=== PATIENT | female | born 1945 | race African-American/Black ===

== ENCOUNTER 2020-09-05 19:41 | Inpatient (IN) | payer MEDICARE, MEDICAID ==
[~2020-09-05] VITALS: Ht 152.4 cm; Wt 45.1 kg
[2020-09-05] MEDS ORDERED: LIPITOR10 MG PO (20:07)
[2020-09-05] MEDS ORDERED: BASAGLAR K100 UNIT/1 (20:07)
[2020-09-05] MEDS ORDERED: COZAAR100 MG PO (20:08)
[2020-09-05] MEDS ORDERED: HYDROCODONE-AC1 EAC2 PO (20:08)
[2020-09-05] MEDS ORDERED: MEGACE40 MG PO (20:10)
[2020-09-05] MEDS ORDERED: PROTONIX40 MG PO (20:10)
[2020-09-05] MEDS ORDERED: RENVELA800 MG PO (20:11)
[2020-09-05 21:05] VITALS: BP 159/91
[2020-09-05 21:30] LABS: BASOPHILS 0.1 % (0-2); EOSINOPHILS 0 % (0-7); HEMATOCRIT 38.6 % (36.0-48.0); HEMOGLOBIN 11.7 g/dL (12-16); LYMPHOCYTES 2.9 % (15-50); MCH 26.7 pg (26.0-34.0); MCHC 30.3 g/dL (31.0-37.0); MCV 88.1 fL (80.0-100.0); MEAN PLATELET VOLUME 9.3 fL (7.4-10.4); MONOCYTES 3.6 % (2-11); NEUTROPHILS 93.4 % (40-80); PLATELET COUNT 320 10x3/uL (130-400); RBC 4.38 10x6/uL (4.00-5.40); RDW 21.2 % (11.5-14.5); WBC 16.6 10x3/uL (4.8-10.8)
[2020-09-05 21:47] LABS: APTT 41.5 SECONDS (22.8-39.4); INR 1.29 (0.85-1.17); PROTIME 14.9 SECONDS (11.6-15.0)
[2020-09-05 21:50] VITALS: BP 170/91
[2020-09-05 22:02] LABS: ALBUMIN 3.3 g/dL (3.4-5.0); BILIRUBIN - TOTAL 0.97 mg/dL (0.2-1.3); CALCIUM 8.8 mg/dL (8.5-10.1); CARBON DIOXIDE 21.2 mmol/L (21.0-32.0); CREATININE - SERUM 9.8 mg/dL (0.6-1.3); MAGNESIUM - SERUM 2.1 mg/dL (1.8-2.4); PHOSPHOROUS 7.5 mg/dL (2.5-4.9)
[2020-09-05 22:04] LABS: ANION GAP 21.9 mmol/L (8-16)
[2020-09-05 22:07] LABS: POTASSIUM - SERUM 6.1 mmol/L (3.5-5.1)
[2020-09-05 23:21] VITALS: BP 135/67
--- NOTE | 2020-09-05 23:55 | NUR ---
RECEIVED PT FROM THE ER TO ROOM 2305. TRANSFERRED PT TO ICU BED AND ATTACHED PT TO MONITORS. PT COMPLAINS OF PAIN TO HER RLQ ABDOMEN, INFORMED PT THAT SOON I CAN GIVE HER PAIN MEDS THAT I WOULD GET THEM FOR HER. ADMISSION ASSESSMENT AND HX COMPLETED WITH PT ASSISTANCE. NO FURTHER NEEDS VOICED AT THIS TIME. NO S/S OF DISTRESS NOTED. WILL CONTINUE TO MONITOR.
[2020-09-06] VITALS (23 sets, daily range): BP systolic 117–177; BP diastolic 43–75; Ht 152.4 cm; Wt 45.1 kg
--- NOTE | 2020-09-06 00:10 | NUR ---
SPOKE WITH ELISA LLOYD APN AND WAS NOTIFIED THAT HE PERSONALLY SPOKE WITH BOTH DR DRAPER AND DR ELIZONDO REGARDING PATIENT CONSULTS.
[2020-09-06 02:10] LABS: CKMB 0.5 U/L (0.0-3.6); CREATINE KINASE 42 UL (21-215)
[2020-09-06 02:12] LABS: TROPONIN-I 0.074 ng/mL (0.000-0.060)
[2020-09-06 07:39] LABS: BASOPHILS 0.7 % (0-2); EOSINOPHILS 0.1 % (0-7); LYMPHOCYTES 1.8 % (15-50); MCH 26.3 pg (26.0-34.0); MCHC 30.3 g/dL (31.0-37.0); MCV 86.8 fL (80.0-100.0); MEAN PLATELET VOLUME 8.7 fL (7.4-10.4); MONOCYTES 4.3 % (2-11); NEUTROPHILS 93.1 % (40-80); PLATELET COUNT 262 10x3/uL (130-400); RDW 21.1 % (11.5-14.5); WBC 18.9 10x3/uL (4.8-10.8)
[2020-09-06 07:46] LABS: HEMATOCRIT 28.8 % (36.0-48.0); HEMOGLOBIN 8.8 g/dL (12-16); RBC 3.32 10x6/uL (4.00-5.40)
[2020-09-06 08:21] LABS: ALBUMIN 2.7 g/dL (3.4-5.0); ALKALINE PHOSPHATASE 31 U/L (30-120); ALT (SGPT) 22 U/L (10-68); AMYLASE - SERUM 51 U/L (25-115); BILIRUBIN - TOTAL 0.78 mg/dL (0.2-1.3); CALC OSMOLALITY 317 mosm/kg (275-300); CALCIUM 8.3 mg/dL (8.5-10.1); CARBON DIOXIDE 18.7 mmol/L (21.0-32.0); CHLORIDE - SERUM 107 mmol/L (98-107); CHOL - HDL RATIO 2.4 ratio (2.3-4.1); CHOLESTEROL, TOTAL 131 mg/dL (0-200); CKMB 0.7 U/L (0.0-3.6); CREATINE KINASE 37 UL (21-215); CREATININE - SERUM 10.3 mg/dL (0.6-1.3); GLUCOSE 221 mg/dL (74-106); HDL CHOLESTEROL 54 mg/dL (32-96); LDL CHOLESTEROL 67 mg/dL (0-100); LDL-HDL RATIO 1.2 ratio (1.5-3.5); LIPASE 19 U/L (73-393); PHOSPHOROUS 8.3 mg/dL (2.5-4.9); POTASSIUM - SERUM 5.1 mmol/L (3.5-5.1); PROTEIN - SERUM 6.6 g/dL (6.4-8.2); SODIUM 143 mmol/L (136-145); TRIGLYCERIDE 54 mg/dL (30-200); UREA NITROGEN 85 mg/dL (7-18); VANCOMYCIN - RANDOM 19.1 ug/mL (10.0-20.0); eGFR NON AFRICAN AMERICAN 4 mL/min (90-120)
[2020-09-06 08:22] LABS: TROPONIN-I 0.082 ng/mL (0.000-0.060)
--- NOTE | 2020-09-06 11:41 | NUR ---
PATIENT ARRIVED TO OR WITH DENTURE X 1 PLATE. REMOVED AND PLACED IN LABELED DENTURE CUP. TAKEN WITH PATIENT TO ICU BED 2305. NOTED. YESSENIA GARNETT
--- NOTE | 2020-09-06 12:10 | NUR ---
LEVOPHED INFUSIN THROUGH L ARM. PT ON VENT 100% ON FIO2.
--- NOTE | 2020-09-06 12:27 | NUR ---
PT ON VENT. VSS. FIXED SPO2 STICKER FOR BETTER READING. PT SEDATED.
[2020-09-06 13:22] LABS: CKMB 0.5 U/L (0.0-3.6); CREATINE KINASE 49 UL (21-215); TROPONIN-I 0.057 ng/mL (0.000-0.060)
--- NOTE | 2020-09-06 19:00 | NUR ---
BEDSIDE REPORT COMPLETED WITH OFF GOING NURSE. PT IS LAYING IN BED SEDATED AND ON THE VENT. PT WILL AWAKEN AND NOD OR SHAKE HEAD TO QUESTIONS. BROTHER PRESENT AT THE BEDSIDE AT THIS TIME. NO NEEDS NOTED. NO S/S OF DISTRESS NOTED. SHIFT ASSESSMENT COMPLETED, SEE FLOWSHEET FOR DETAILS. WILL CONTINUE TO MONITOR.
[2020-09-07] VITALS (24 sets, daily range): BP systolic 111–158; BP diastolic 26–66
[2020-09-07 05:12] LABS: BASOPHILS 0.3 % (0-2); EOSINOPHILS 0 % (0-7); HEMOGLOBIN 10.1 g/dL (12-16); LYMPHOCYTES 1.9 % (15-50); MCH 27.2 pg (26.0-34.0); MCHC 31.5 g/dL (31.0-37.0); MCV 86.2 fL (80.0-100.0); MEAN PLATELET VOLUME 9.3 fL (7.4-10.4); MONOCYTES 5.9 % (2-11); NEUTROPHILS 91.9 % (40-80); PLATELET COUNT 211 10x3/uL (130-400); RBC 3.72 10x6/uL (4.00-5.40); RDW 19.2 % (11.5-14.5); WBC 16.6 10x3/uL (4.8-10.8)
[2020-09-07 06:22] LABS: ALBUMIN 2.3 g/dL (3.4-5.0); ANION GAP 17.5 mmol/L (8-16); BILIRUBIN - TOTAL 1.68 mg/dL (0.2-1.3); CALCIUM 8.4 mg/dL (8.5-10.1); CARBON DIOXIDE 21.9 mmol/L (21.0-32.0); MAGNESIUM - SERUM 1.9 mg/dL (1.8-2.4); PHOSPHOROUS 6.8 mg/dL (2.5-4.9); POTASSIUM - SERUM 4.4 mmol/L (3.5-5.1); PROTEIN - SERUM 6.2 g/dL (6.4-8.2); TROPONIN-I 0.047 ng/mL (0.000-0.060)
[2020-09-07 06:23] LABS: CREATININE - SERUM 6.8 mg/dL (0.6-1.3)
[2020-09-07 09:14] LABS: HEPATITIS C ANTIBODY 0.1 S/CO RAT (0.0-0.9)
--- NOTE | 2020-09-07 10:36 | NUR ---
PT ABLE TO OPEN EYES AND FOLLOW SIMPLE COMMANDS WHILE SEDATION OFF. SWITCHED TO CPAP TRIAL PER RESPIRATORY.
--- NOTE | 2020-09-07 11:15 | NUR ---
P/S TRIAL STARTED PER DR. MERAZ AT 1036. 01/17 30%. PT IS DOING WELL AT THIS TIME. RSBI 62, HR 88 SPO2 100%. ABG TO FOLLOW IN 1 HOUR. POSSIBLE EXTUBATION TODAY UPON SUCCESSFUL TRIAL.
--- NOTE | 2020-09-07 13:02 | NUR ---
AT 1256 PT WAS EXTUBATED TO ROOM AIR PER DR MERAZ. ABG RESULTS AND SUCESSFUL PRESSURE SUPPORT TRIAL FOR 2 HOURS WITH RSBI OF 62. PT IS DOING WELL AT THIS TIME.
--- NOTE | 2020-09-07 20:11 | NUR ---
BEDSIDE REPORT COMPLETED WITH OFF GOING NURSE. PT IS RESTING IN BED WITH EYES OPEN AT THIS TIME. NO S/S OF DISTRESS. NO NEEDS VOICED/EXPRESSED. SHIFT ASSESSMENT COMPLETED, SEE FLOWSHEET FOR DETAILS. WILL CONTINUE TO MONITOR.
[2020-09-08] VITALS (13 sets, daily range): BP systolic 102–153; BP diastolic 29–78
[2020-09-08 04:39] LABS: BASOPHILS 0.3 % (0-2); EOSINOPHILS 0.1 % (0-7); HEMATOCRIT 32.9 % (36.0-48.0); HEMOGLOBIN 10.3 g/dL (12-16); LYMPHOCYTES 3.4 % (15-50); MCH 27.1 pg (26.0-34.0); MCHC 31.4 g/dL (31.0-37.0); MCV 86.4 fL (80.0-100.0); MEAN PLATELET VOLUME 9.3 fL (7.4-10.4); NEUTROPHILS 89.2 % (40-80); PLATELET COUNT 245 10x3/uL (130-400); RBC 3.81 10x6/uL (4.00-5.40); RDW 19.4 % (11.5-14.5)
[2020-09-08 04:56] LABS: ALBUMIN 2.2 g/dL (3.4-5.0); ANION GAP 20.7 mmol/L (8-16); BILIRUBIN - TOTAL 1.34 mg/dL (0.2-1.3); CALCIUM 8.1 mg/dL (8.5-10.1); CARBON DIOXIDE 20.8 mmol/L (21.0-32.0); CREATININE - SERUM 8.5 mg/dL (0.6-1.3); PHOSPHOROUS 7.9 mg/dL (2.5-4.9); POTASSIUM - SERUM 4.5 mmol/L (3.5-5.1); PROTEIN - SERUM 6.3 g/dL (6.4-8.2); VANCOMYCIN - RANDOM 11.8 ug/mL (10.0-20.0)
--- NOTE | 2020-09-08 08:01 | NUR ---
Nutrition follow-up: Discussed during IDT team rounds. Pt extubated 09/07/20 Continues NPO at this time; NGT->LIS No BM charted since surgery Wt: 100# Recommendations: For short-term nutrition support, start ProcalAmine PPN @ 50 ml/hr RDN will follow-up pts progress 09/12/20
--- NOTE | 2020-09-08 09:53 | NUR ---
PT AWAKE AND ALERT IN BED. PT MOANING AND COMPLAINING OF EXTREME PAIN TO SX SITE. WILL GIVE PRN PAIN MED ORDERED.
--- NOTE | 2020-09-08 11:00 | NUR ---
A-LINE REMOVED. PRESSURE APPLIED FOR APPROX 5 MIN. BLEEDING CONTROLLED. DRESSING PLACED. DISTAL PULSES INTACT.
--- NOTE | 2020-09-08 12:00 | NUR ---
PT TAKEN TO DIALYSIS. STABLE AT TIME OF TRANSPORT.
--- NOTE | 2020-09-08 15:14 | NUR ---
DIALYSIS CALLED AND REPORTED COMPLETED AT 1500. 1L REMOVED. VS STABLE.
--- NOTE | 2020-09-08 15:32 | NUR ---
PT BACK FROM DIALYSIS. PT C/O PAIN TO ABD SX SITE 12/23. MORPHINE PRN GIVEN. PT STABLE AND REC' BED ON MED 2 FOR PT 2136.
--- NOTE | 2020-09-08 15:46 | NUR ---
REPORT GIVEN TO YESSENIA JOEL
--- NOTE | 2020-09-08 16:08 | NUR ---
PT ARRIVED VIA HOSPITAL BED. TRANSFERED TO BED IN ROOM 2136. PT AWAKE AND ALERT FAMILY AT BED SIDE. IV TO R AC NOTED WITH IV PROCAL AND SCHEDULED ANTIBIOTICS INFUSING. NGT TO R NARE PLACED TO LOW INTERMIT SUCTION PER ORDER. ABD DRESSING C/D/I. PT DENIES ANY NEEDS PAIN REPORTED WITH MOVEMENT, ICU NURSE ADMIN PAIN MEDS PRIOR TO TRANSFER. BELONGINGS WITHIN REACH CLWR.
--- NOTE | 2020-09-08 17:00 | NUR ---
Pt. tolerated dialysis treatment well. 1000mls UF Removed. VS 172/92-99. Report given to Major CASAS.
--- NOTE | 2020-09-08 19:30 | NUR ---
PT IN BED, AAO X 3, RESP EVEN AND UNLABORED, NO DISTRESS NOTED, IV INFILTRATED TO RIGHT AC, NEW 22G STARTED TO LEFT FOREARM, CL IN REACH, SR UP X 2.
[2020-09-09 00:54] VITALS: BP 155/76
--- NOTE | 2020-09-09 01:41 | NUR ---
I have reviewed this patient and I concur with the Shift Assessment completed by the Licensed Practical Nurse today this shift.
[2020-09-09 05:06] VITALS: BP 154/77
[2020-09-09 05:15] LABS: BASOPHILS 0.5 % (0-2); EOSINOPHILS 0.8 % (0-7); HEMOGLOBIN 10.5 g/dL (12-16); LYMPHOCYTES 3.2 % (15-50); MCH 27.4 pg (26.0-34.0); MCHC 31.7 g/dL (31.0-37.0); MCV 86.3 fL (80.0-100.0); MEAN PLATELET VOLUME 9.7 fL (7.4-10.4); NEUTROPHILS 88.5 % (40-80); PLATELET COUNT 258 10x3/uL (130-400); RBC 3.82 10x6/uL (4.00-5.40); WBC 11.8 10x3/uL (4.8-10.8)
[2020-09-09 06:37] LABS: ALBUMIN 2.2 g/dL (3.4-5.0); BILIRUBIN - TOTAL 1.53 mg/dL (0.2-1.3); CALCIUM 8.1 mg/dL (8.5-10.1); CARBON DIOXIDE 22.6 mmol/L (21.0-32.0); PHOSPHOROUS 5.9 mg/dL (2.5-4.9); POTASSIUM - SERUM 4.6 mmol/L (3.5-5.1); PROTEIN - SERUM 6.5 g/dL (6.4-8.2)
--- NOTE | 2020-09-09 08:30 | NUR ---
RECEIVE SHIFT REPORT. RESTING IN BED WITH EYES CLOSED. NG TUBE IN PLACE. NO S/S OF DISTRESS PRESENT AT THIS TIME. WILL CONTINUE POC AND SAFETY PRECAUTIONS. CALL LIGHT IN REACH.
[2020-09-09 08:55] VITALS: BP 155/85
[2020-09-09 12:00] VITALS: BP 147/85
--- NOTE | 2020-09-09 19:30 | NUR ---
PT IN BED, AAO X 3, RESP EVEN AND UNLABORED, NO DISTRESS NOTED, DRSG TO ABDOMEN CHANGED PER ORDER AT THIS TIME, PT TOLERATED WELL, CL IN REACH, SR UP X 2.
[2020-09-09 20:23] VITALS: BP 143/80
[2020-09-09 23:44] VITALS: BP 126/62
[2020-09-10 04:59] VITALS: BP 139/75
[2020-09-10 06:55] LABS: ANION GAP 18.4 mmol/L (8-16); BILIRUBIN - TOTAL 0.93 mg/dL (0.2-1.3); CALCIUM 8.3 mg/dL (8.5-10.1); CARBON DIOXIDE 22.9 mmol/L (21.0-32.0); CREATININE - SERUM 6.7 mg/dL (0.6-1.3); MAGNESIUM - SERUM 2.3 mg/dL (1.8-2.4); PHOSPHOROUS 6.5 mg/dL (2.5-4.9); POTASSIUM - SERUM 4.3 mmol/L (3.5-5.1); PROTEIN - SERUM 5.9 g/dL (6.4-8.2)
[2020-09-10 07:16] LABS: BASOPHILS 0.3 % (0-2); EOSINOPHILS 1.4 % (0-7); HEMATOCRIT 31.2 % (36.0-48.0); LYMPHOCYTES 8.1 % (15-50); MCH 27.7 pg (26.0-34.0); MCHC 31.9 g/dL (31.0-37.0); MCV 86.7 fL (80.0-100.0); MEAN PLATELET VOLUME 9.2 fL (7.4-10.4); MONOCYTES 8.1 % (2-11); NEUTROPHILS 82.1 % (40-80); PLATELET COUNT 264 10x3/uL (130-400); RDW 18.8 % (11.5-14.5)
[2020-09-10 07:34] LABS: WBC 7.9 10x3/uL (4.8-10.8)
--- NOTE | 2020-09-10 08:00 | NUR ---
PT RECEIVED ASLEEP IN BED, AROUSE TO VOICE. NGT TO SUCTION. ABDOMEN SORE, JULIAN DRAIN IN PLACE AND EMPTIED.
[2020-09-10 08:55] VITALS: BP 123/69; BP 141/73
[2020-09-10 09:11] LABS: IMMUNOGLOBULIN E 3 IU/mL (6-495)
--- NOTE | 2020-09-10 10:43 | NUR ---
PT UP TO BATHROOM WITH URGE TO HAVE BM. BED CHANGED AND NGT CLAMPED PER ORDER.
[2020-09-10 11:51] VITALS: BP 139/72
[2020-09-10 15:54] VITALS: BP 140/83
--- NOTE | 2020-09-10 17:30 | NUR ---
PT BACK TO ROOM FROM DIALYSIS DUE TO CHEST PAIN. EKG DONE SHOWING NORMAL RYTHM. FAMILY IN ROOM. PT STATES MAY BE FROM SURGERY AND SHE HAS HAD SOME GAS TODAY.
[2020-09-10 18:55] LABS: CKMB 0.6 U/L (0.0-3.6); CREATINE KINASE 73 UL (21-215); TROPONIN-I 0.059 ng/mL (0.000-0.060)
--- NOTE | 2020-09-10 18:56 | NUR ---
PT FAMILY TO NURSE STATION AND TRYING TO GIVE MONEY TO GET STARBUCKS OR SNACK. INSTRUCTED COULD NOT TAKE ROSAS. FAMILY LEFT AND MONEY PLACED IN PT'S PERSONAL BELONGINGS BAG IN ROOM.
[2020-09-10 20:05] VITALS: BP 118/64
[2020-09-11 00:51] VITALS: BP 135/72
--- NOTE | 2020-09-11 01:43 | NUR ---
PT IN BED, MOANING YELLING OUT FOR HUGO. BEGS THE LORD TO HELP HER W/ HER PAIN DILAUDID GIVEN PRN ORDERED. REPOSITIONED IN BED. WILL CONTINUE TO MONITOR
[2020-09-11 01:50] LABS: CKMB 0.8 U/L (0.0-3.6); CREATINE KINASE 67 UL (21-215); TROPONIN-I 0.051 ng/mL (0.000-0.060)
[2020-09-11 06:34] VITALS: BP 170/55
[2020-09-11 07:41] VITALS: BP 124/69
--- NOTE | 2020-09-11 07:45 | NUR ---
PT RECEIVED AWAKE AND ALERT. ASKING ABOUT HER PURSE WHEN SHE CAME IN. WILL TRY AND FIND OUT LOCATION TODAY. NO FORMS ON CHART FOR SECURITY LOCK UP. WILL ASK FAMILY IF THEY TOOK HOME. NOT IN ROOM.
[2020-09-11 08:03] LABS: ALBUMIN 2.2 g/dL (3.4-5.0); BILIRUBIN - TOTAL 0.82 mg/dL (0.2-1.3); CALCIUM 8.3 mg/dL (8.5-10.1); CARBON DIOXIDE 24.2 mmol/L (21.0-32.0); CREATININE - SERUM 7.2 mg/dL (0.6-1.3); PROTEIN - SERUM 5.9 g/dL (6.4-8.2)
[2020-09-11 08:04] LABS: ANION GAP 17.1 mmol/L (8-16); POTASSIUM - SERUM 5.3 mmol/L (3.5-5.1)
[2020-09-11 08:18] LABS: CREATINE KINASE 106 UL (21-215)
[2020-09-11 08:20] LABS: BASOPHILS 0.4 % (0-2); EOSINOPHILS 1.1 % (0-7); HEMATOCRIT 29.4 % (36.0-48.0); HEMOGLOBIN 9.3 g/dL (12-16); LYMPHOCYTES 6.1 % (15-50); MCH 27.9 pg (26.0-34.0); MCHC 31.8 g/dL (31.0-37.0); MCV 87.7 fL (80.0-100.0); MEAN PLATELET VOLUME 9.7 fL (7.4-10.4); MONOCYTES 6.2 % (2-11); NEUTROPHILS 86.2 % (40-80); PLATELET COUNT 295 10x3/uL (130-400); RBC 3.35 10x6/uL (4.00-5.40); RDW 18.8 % (11.5-14.5); WBC 9.3 10x3/uL (4.8-10.8)
[2020-09-11 08:21] LABS: TROPONIN-I 0.448 ng/mL (0.000-0.060)
[2020-09-11 12:28] VITALS: BP 134/67
[2020-09-11 16:11] VITALS: BP 122/59
[2020-09-11 19:59] VITALS: BP 143/81
--- NOTE | 2020-09-11 23:00 | NUR ---
new piv placed to left foraem, 20 gauge multiple attempts by 2 nurses. PT TOLERATED WELL, EXCELLENT BLOOD RETURN NOTED. WILL CONTINUE TO MONITOR
[2020-09-12 00:33] VITALS: BP 150/68
[2020-09-12 05:26] VITALS: BP 134/68
[2020-09-12 07:10] LABS: BASOPHILS 0.4 % (0-2); EOSINOPHILS 1.1 % (0-7); HEMOGLOBIN 9.5 g/dL (12-16); LYMPHOCYTES 7.5 % (15-50); MCH 27.4 pg (26.0-34.0); MCHC 31.5 g/dL (31.0-37.0); MEAN PLATELET VOLUME 9.3 fL (7.4-10.4); MONOCYTES 7.3 % (2-11); NEUTROPHILS 83.7 % (40-80); PLATELET COUNT 336 10x3/uL (130-400); RBC 3.45 10x6/uL (4.00-5.40); RDW 18.1 % (11.5-14.5); WBC 9.7 10x3/uL (4.8-10.8)
[2020-09-12 07:40] LABS: ALBUMIN 2.2 g/dL (3.4-5.0); BILIRUBIN - TOTAL 0.76 mg/dL (0.2-1.3); CALCIUM 8.4 mg/dL (8.5-10.1); CARBON DIOXIDE 19.5 mmol/L (21.0-32.0); POTASSIUM - SERUM 5.5 mmol/L (3.5-5.1)
--- NOTE | 2020-09-12 13:53 | NUR ---
Nutrition Follow-up: Patient ESRD on HD. Pt OOR to HD at time of RD visit. Plans to advance diet per Sx- per MD notes. He is s/p partial colectomy with anastomosis. Diet was advanced from clear liquid to full liquid yesterday. POD#6. Diet: Full Liquid PO intake: none recorded PPN: Procalamine @ 50mL = 294kcal (~20% est needs) and 35gms protein (~65% est needs) Last BM: none recorded Wt: 99.2# (09/08/20); Admit Wt: 102.6# (09/06/20)- Noted -3.4# since admit Meds noted: probiotics, SSI Labs noted: Na 131(L), K 5.5(H), BUN 108(H), Cr 8.0(H), GFR 6(L), POC Glu 201(H) Recommendations: -Continue to advance diet as tolerated as soon as medically feasible. -If PO intake does not increase to at least >65% MD may consider increasing Procalamine vs placement of NGT for EN feeding. -RD will follow-up within 2-3 days.
[2020-09-12 20:25] VITALS: BP 141/69
--- NOTE | 2020-09-12 20:52 | NUR ---
shift assessment performed, pt found to have large amt dark loose stool that was dried to her legs and buttock stool appears black,but upon cleansing pt buttock there are shades of deep red, maximus notified md occupational rehabilitation aide, stool sent for guaic, VSS 141/69 pulse 106 rr 20 o2 100% on RA. pt remains somnolent which is how off going nurse reports pt stayed trhoughout today. will conitnue to monitor
[2020-09-12 21:27] LABS: BASOPHILS 0.5 % (0-2); EOSINOPHILS 1.1 % (0-7); HEMATOCRIT 30.3 % (36.0-48.0); HEMOGLOBIN 9.7 g/dL (12-16); IMMATURE GRANULOCYTES 1.2 % (0-5); LYMPHOCYTE ABS# 0.57 10x3/uL (1.18-3.74); LYMPHOCYTES 5.6 % (15-50); MCH 27.5 pg (26.0-34.0); MCV 85.8 fL (80.0-100.0); MEAN PLATELET VOLUME 11.4 fL (7.4-10.4); MONOCYTES 6.7 % (2-11); NEUTROPHIL ABS# 8.69 10x3/uL (1.56-6.13); NEUTROPHILS 84.9 % (40-80); RBC 3.53 10x6/uL (4.00-5.40); RDW 17.2 % (11.5-14.5); WBC 10.2 10x3/uL (4.8-10.8)
[2020-09-12 21:28] LABS: PLATELET COUNT 397 10x3/uL (130-400)
[2020-09-13 00:45] VITALS: BP 128/66
[2020-09-13 04:50] VITALS: BP 124/61
[2020-09-13 05:43] LABS: BASOPHILS 0.7 % (0-2); EOSINOPHILS 0.9 % (0-7); HEMATOCRIT 26.4 % (36.0-48.0); HEMOGLOBIN 8.5 g/dL (12-16); LYMPHOCYTES 7.2 % (15-50); MCH 27.7 pg (26.0-34.0); MCHC 32.1 g/dL (31.0-37.0); MCV 86.2 fL (80.0-100.0); MEAN PLATELET VOLUME 9.2 fL (7.4-10.4); NEUTROPHILS 82.2 % (40-80); PLATELET COUNT 345 10x3/uL (130-400); RBC 3.06 10x6/uL (4.00-5.40); RDW 19.2 % (11.5-14.5)
[2020-09-13 06:02] LABS: ALBUMIN 1.9 g/dL (3.4-5.0); BILIRUBIN - TOTAL 0.76 mg/dL (0.2-1.3); CALCIUM 7.7 mg/dL (8.5-10.1); POTASSIUM - SERUM 5.1 mmol/L (3.5-5.1); PROTEIN - SERUM 5.5 g/dL (6.4-8.2)
[2020-09-13 06:03] LABS: ANION GAP 14.4 mmol/L (8-16); CARBON DIOXIDE 24.7 mmol/L (21.0-32.0); CREATININE - SERUM 5.3 mg/dL (0.6-1.3)
--- NOTE | 2020-09-13 06:16 | NUR ---
PT REMAINS SOMNOLENT, APPEARS SOMEWHAT IMPROVED THIS MORNING WILL AWAKEN AND NOD YED OR NO AND ANSWER SIMPLE QUESTIONS. HGB 8.5 THIS AM WAS 9.7 LAST PM, PAGED BATTERY CHARGER TESTER SURGERY MD TO NOTIFY. VSS 124/61, P-87, RR-20, 02 SAT 99 ON RA NO FURTHER BMS THIS SHIFT JULIAN DRAIN WITH 5 CC SEROUS FLUID OUT IN LAST 6 HRS. NO ACUTE DISTRESS WILL CONTINUE TO MONITOR
--- NOTE | 2020-09-13 06:32 | NUR ---
DR ADAMS NOTIFIED OF HGB, NO NEW ORDERS AT THIS TIME. WILL CONTINUE TO MONITOR
[2020-09-13 09:00] VITALS: BP 127/64
[2020-09-13 12:00] VITALS: BP 137/67
--- NOTE | 2020-09-13 12:16 | NUR ---
REHAB PRESCREENING Rehab referral received and chart reviewed. This patient is a good candidate for acute inpatient rehab. We will begin her electronic screen and plan to admit her if she is willing to come and when her physicians feel she is appropriate for discharge. Discussed increased ambulation need with PT. Thank you for this referral! Vannessa Aquino, POST COMMANDER Rehab PD
[2020-09-13 16:00] VITALS: BP 138/86
[2020-09-13 20:00] VITALS: BP 130/63
[2020-09-14] VITALS: BP 123/60
[2020-09-14 04:00] VITALS: BP 117/60
--- NOTE | 2020-09-14 07:15 | NUR ---
PT LYING IN BED WITH HOB ELEVATED 30 DEGREES. RESP EVEN AND UNLABORED. ALERT AND ORIENTED TO PERSON AND PLACE. CONFUSED TO TIME. MADISON TO MIDLINE ABD INTACT. NO BLEEDING OR DRAINAGE NOTED. SCDs IN PLACE. DENIES NEEDS AT THIS TIME. BED IN LOWEST POSITION. SIDE RAILS X2
[2020-09-14 07:22] LABS: BASOPHILS 0.5 % (0-2); EOSINOPHILS 1.7 % (0-7); HEMATOCRIT 25.9 % (36.0-48.0); HEMOGLOBIN 8.2 g/dL (12-16); LYMPHOCYTES 9.2 % (15-50); MCH 27.7 pg (26.0-34.0); MCHC 31.7 g/dL (31.0-37.0); MCV 87.2 fL (80.0-100.0); MEAN PLATELET VOLUME 9.3 fL (7.4-10.4); MONOCYTES 11.6 % (2-11); PLATELET COUNT 386 10x3/uL (130-400); RBC 2.97 10x6/uL (4.00-5.40); RDW 19.1 % (11.5-14.5); WBC 7.2 10x3/uL (4.8-10.8)
[2020-09-14 07:42] LABS: ALBUMIN 2.1 g/dL (3.4-5.0); ANION GAP 16.6 mmol/L (8-16); BILIRUBIN - TOTAL 0.73 mg/dL (0.2-1.3); CALCIUM 8.1 mg/dL (8.5-10.1); CARBON DIOXIDE 21.8 mmol/L (21.0-32.0); CREATININE - SERUM 6.4 mg/dL (0.6-1.3); POTASSIUM - SERUM 5.4 mmol/L (3.5-5.1); PROTEIN - SERUM 5.8 g/dL (6.4-8.2)
[2020-09-14 09:49] VITALS: BP 128/58
--- NOTE | 2020-09-14 10:32 | NUR ---
PT LEFT UNIT FOR DIALYSIS ACCOMPANIED BY HOSPITAL STAFF
[2020-09-14 12:00] VITALS: BP 123/70
--- NOTE | 2020-09-14 13:23 | NUR ---
I have reviewed this patient and I concur with the Shift Assessment completed by the Licensed Practical Nurse today this shift.
--- NOTE | 2020-09-14 13:50 | NUR ---
PT RETURNED TO UNIT FROM DIALYSIS
--- NOTE | 2020-09-14 13:50 | NUR ---
I have reviewed this patient and I concur with the Shift Assessment completed by the Licensed Practical Nurse today this shift.
--- NOTE | 2020-09-14 14:31 | NUR ---
Nutrition Reassessment/Follow-up: Nursing reports pt tolerating PO intake. Receiving Procal @ 50 mL/hr; provides 299 kcal & 36 g protein daily. Discussed in IDT meeting; per Josiah JAMES, diet will be advanced and Procal d/c'd. Nursing reports +BM/flatus. Diet: Full Liquid PO intake: 0% x 3 yesterday No new wt; last wt: 99.2# (09/08) Labs noted: Na 131, K+ 5.4, BUN 77, Cre 6.4, GFR 8, Glu 143, Ca 8.1, PO4 6.0, Alb 2.1 Meds noted: Protonix, Megace, Florajen, Humalog, electrolyte protocol Nutrition Goals: -PO intake >=75% avg of meals/snacks. -Meet est fluid needs without fluid overload. -Stable dry wt. -Glu at or near normal. Nutrition Intervention: -Nutrition needs & Dx unchanged since previous reassessment. -Rec advance to renal carb consistent diet as medically feasible. -Encourage PO intake and honor food preferences within diet restrictions. -Need new wt. -RD will follow up within 2-5 days.
[2020-09-14 15:00] VITALS: BP 128/58
--- NOTE | 2020-09-14 15:42 | NUR ---
OT NOTE: PT ALERT IN BED. PLEASANTLY CONFUSED.. ORIENTED TO SELF..ABLE TO FOLLOW 1-2 STEP COMMANDS. PT ATE APPROX 25% OF BREAKFAST; BED MOB WITH MOD ASSIST FOR SUPINE TO SIT AND SCOOTING TO EOB; ABLE TO AMB TO TOILET WITH RAILROAD CONDUCTOR AND TRANSFER WITH MIN ASSIST; PULL UP WAS SOILED; REQUIRED MOD ASSIST TO DOFF AND APRYL CLEAN PULL UP; MOD ASSIST FOR PERINEAL CARE; VERBAL CUES AND MOD ASSIST FOR BATHING WITH WASHCLOTH WHILE SITTING AT EOB. TRANSFERS HAVE IMPROVED FROM YESTERDAY..ABLE TO TRANSFER WITH USE OF WALKER FROM BED TO CHAIR AND CHAIR TO BED WITH MIN ASSIST. SET UP TO APPLY DENTURES. SHAQUILLE HEATH, OTR/L [phone]
[2020-09-14 20:00] VITALS: BP 128/60
[2020-09-15] VITALS: BP 135/66
[2020-09-15 04:00] VITALS: BP 143/70
[2020-09-15 07:36] LABS: BASOPHILS 0.6 % (0-2); EOSINOPHILS 1.3 % (0-7); HEMATOCRIT 28.1 % (36.0-48.0); HEMOGLOBIN 8.8 g/dL (12-16); IMMATURE GRANULOCYTES 0.2 % (0-5); LYMPHOCYTE ABS# 0.85 10x3/uL (1.18-3.74); LYMPHOCYTES 10.4 % (15-50); MCH 27.2 pg (26.0-34.0); MCHC 31.3 g/dL (31.0-37.0); MEAN PLATELET VOLUME 11.5 fL (7.4-10.4); MONOCYTES 15.7 % (2-11); NEUTROPHIL ABS# 5.84 10x3/uL (1.56-6.13); NEUTROPHILS 71.8 % (40-80); PLATELET COUNT 318 10x3/uL (130-400); RBC 3.23 10x6/uL (4.00-5.40); RDW 17.5 % (11.5-14.5); WBC 8.2 10x3/uL (4.8-10.8)
[2020-09-15 08:03] LABS: ALBUMIN 2.1 g/dL (3.4-5.0); ANION GAP 14.7 mmol/L (8-16); BILIRUBIN - TOTAL 0.57 mg/dL (0.2-1.3); CALCIUM 7.8 mg/dL (8.5-10.1); CARBON DIOXIDE 25.7 mmol/L (21.0-32.0); CREATININE - SERUM 4.8 mg/dL (0.6-1.3); PHOSPHOROUS 4.8 mg/dL (2.5-4.9); POTASSIUM - SERUM 5.4 mmol/L (3.5-5.1); PROTEIN - SERUM 5.3 g/dL (6.4-8.2)
[2020-09-15] MEDS ORDERED: COREG6.25 MG PO (09:38)
[2020-09-15 11:05] VITALS: BP 133/64
--- NOTE | 2020-09-15 12:46 | NUR ---
PATIENT ACCEPTED TO INPATIENT REHAB. SHE CAN COME TO ROOM 1113B. I HAVE NOTIFIED YESSENIA GORDON CM, MIGUELINA LABOR RELATIONS DIRECTOR, AND YESSENIA JEFFERS WOMEN'S ACTIVITIES ADVISER.
--- NOTE | 2020-09-15 14:52 | NUR ---
PATIENT TAKEN TO REHAB DOWNSTAIRS AND REPORT GIVEN TO GORDY.
--- NOTE | 2020-09-15 18:36 | NUR ---
OT NOTE: PT IS LETHARGIC. PT REQUIRED VERBAL CUES FOR INCREASED ALERTNESS. PT REQUIRED MIN A FOR SIMPLE FACE AND HAND HYGIENE. PT COMPLETED ORAL CARE WITH TOOTHETTE WITH MIN A. PT REQUIRED MOD A FOR POSITIONING IN BED. [phone] MIGUELINA HAGEN COTA
== END 2020-09-15 14:54 | DRG 853 ==
LOC: D.ER 19:41 → D.M2 21:03 → D.ICU 21:03 → D.M2 09-08 16:04
PROVIDERS: Internal Medicine Nephrology; Internal Medicine Pulmonary Disease; Surgery; ADMIT Emergency Medicine; ATTEND Emergency Medicine
PROC: 0DJD4ZZ Inspection of Lower Intestinal Tract, Percutaneous Endoscopic Approach (ICD-10-PCS; 2020-09-06)
PROC: 0DTK0ZZ Resection of Ascending Colon, Open Approach (ICD-10-PCS; principal; 2020-09-06 10:15)
DX: A41.9 Sepsis, unspecified organism (principal); N18.6 End stage renal disease; J96.00 Acute respiratory failure, unspecified whether with hypoxia or hypercapnia; I50.23 Acute on chronic systolic (congestive) heart failure; I21.4 Non-ST elevation (NSTEMI) myocardial infarction; J90 Pleural effusion, not elsewhere classified; I13.0 Hypertensive heart and chronic kidney disease with heart failure and stage 1 through stage 4 chronic kidney disease, or unspecified chronic kidney disease; K55.1 Chronic vascular disorders of intestine; K55.9 Vascular disorder of intestine, unspecified; Z99.2 Dependence on renal dialysis; E87.5 Hyperkalemia; E78.5 Hyperlipidemia, unspecified; Z85.528 Personal history of other malignant neoplasm of kidney; E11.22 Type 2 diabetes mellitus with diabetic chronic kidney disease; K21.9 Gastro-esophageal reflux disease without esophagitis; Z99.81 Dependence on supplemental oxygen; Z79.4 Long term (current) use of insulin; I73.9 Peripheral vascular disease, unspecified; J43.9 Emphysema, unspecified; F41.8 Other specified anxiety disorders; M19.90 Unspecified osteoarthritis, unspecified site; Z95.1 Presence of aortocoronary bypass graft; E83.41 Hypermagnesemia; D64.9 Anemia, unspecified; E83.39 Other disorders of phosphorus metabolism; I27.20 Pulmonary hypertension, unspecified

== ENCOUNTER 2020-09-15 13:23 | Inpatient (IN) | payer MEDICARE, MEDICAID ==
[~2020-09-15] VITALS: Ht 152.4 cm; Wt 39.5 kg
[~2020-09-15 13:23] MED LIST: BASAGLAR K100 UNIT/1; COREG6.25 MG PO; COZAAR100 MG PO; HYDROCODONE-AC1 EAC2 PO; LIPITOR10 MG PO; MEGACE40 MG PO; PROTONIX40 MG PO; RENVELA800 MG PO
[2020-09-15 15:06] VITALS: BP 110/52; BMI 17.0
--- NOTE | 2020-09-15 15:13 | NUR ---
THE PATIENT DOES NOT KNOW HER PHARMACY, I CALLED HER BROTHER'S NUMBER AND THEY DO NOT KNOW. I CALLED HUGO, HER HUBAND AND COULD NOT GET AN ANSWER.
--- NOTE | 2020-09-15 16:17 | NUR ---
PATIENT HAD A LARGE BLOODY BOWEL MOVEMENT. CALLED TO REPORT TO DR ELIZONDO. NEW ORDERS WERE TO CHECK H&H IN THE MORNING AND TO MAKE SURE THE ANTICOAGULANTS WERE STOPPED.
--- NOTE | 2020-09-15 19:00 | NUR ---
BEDSIDE REPORT COMPLETE RECEIVED PT LYING IN BED EYES CLOSED RESTING. HOB ELEVATED. EASILY AROUSED WITH STIMULI. DENIES ANY NEEDS OR PAIN. LEFT FOREARM IV WITHOUT REDNESS OR SWELLING. PATENT DRESSING AND SWAB CAP INTACT. MIDLINE ABDOMINAL MADISON INTACT WITHOUT DRAINAGE OR S/S OF INFECTION. CALL LIGHT AND WATER WITHIN REACH. MERCEDES ALARM ON. CPOC
--- NOTE | 2020-09-16 00:10 | NUR ---
PT LYING IN BED ON LEFT SIDE EYES CLOSED RESTING. RR EVEN AND UNLABORED. CALL LIGHT WITHIN REACH. MERCEDES ALARM ON
[2020-09-16 00:20] VITALS: BP 115/57
--- NOTE | 2020-09-16 01:49 | NUR ---
RESTING QUIETLY WITH EYES CLOSED. CALL LIGHT IN REACH
[2020-09-16 05:46] VITALS: BP 116/86
--- NOTE | 2020-09-16 06:04 | NUR ---
up in wheelchair working with PT.
[2020-09-16 07:17] LABS: ANION GAP 16.5 mmol/L (8-16); CALCIUM 8.2 mg/dL (8.5-10.1); CARBON DIOXIDE 23.7 mmol/L (21.0-32.0); POTASSIUM - SERUM 5.2 mmol/L (3.5-5.1)
[2020-09-16 07:18] LABS: BASOPHILS 0.9 % (0-2); EOSINOPHILS 1.6 % (0-7); HEMATOCRIT 27.3 % (36.0-48.0); HEMOGLOBIN 8.8 g/dL (12-16); LYMPHOCYTES 9.6 % (15-50); MCH 28.4 pg (26.0-34.0); MCHC 32.4 g/dL (31.0-37.0); MCV 87.8 fL (80.0-100.0); MEAN PLATELET VOLUME 9.5 fL (7.4-10.4); MONOCYTES 9.1 % (2-11); NEUTROPHILS 78.8 % (40-80); RBC 3.11 10x6/uL (4.00-5.40); RDW 19.1 % (11.5-14.5); WBC 7.9 10x3/uL (4.8-10.8)
[2020-09-16 07:28] LABS: CREATININE - SERUM 6.2 mg/dL (0.6-1.3); PLATELET COUNT 408 10x3/uL (130-400)
--- NOTE | 2020-09-16 08:32 | NUR ---
SHE IS SETTING UP IN THE WHEELCHAIR. SHE DOES NOT WANT THE FOOD ON THE TRAY, I ORDERED SOME DIFFERENT FOOD. SHE TOOK HER MEDICATIONS WITHOUT ANY PROBLEMS. OT IS GETTING HER IN THE SHOWER. SHE HAS MADISON IN HER ABDOMEN. SHE HAS A HEMOSPLIT TO THE RIGHT CHEST AREA.
[2020-09-16 12:02] VITALS: BP 118/53
[2020-09-16 14:33] VITALS: Ht 152.4 cm; Wt 39.5 kg
[2020-09-16 16:34] VITALS: BP 119/57
--- NOTE | 2020-09-16 19:30 | NUR ---
AWAKE AND ALERT. RESTING IN BED WITH RESPIRATIONS UNLABORED. REQUEST "NERVE MEDICINE" WILL MEDICATE ORDERED. LEFT FOREARM SALINE LOCK INTACT WITH NO SIGNS OF INFILTRATION. RIGHT SIDE HEMISPLIT INTACT. NO ACUTE DISTRESS NOTED. CALL LIGHT IN REACH.
[2020-09-16 20:07] VITALS: BP 119/58
--- NOTE | 2020-09-16 21:45 | NUR ---
MEDICATED FOR ANXIETY WITH XANAX ORDERED. SAFETY MEASURES IN PLACE.
[2020-09-17 00:02] VITALS: BP 98/42
--- NOTE | 2020-09-17 05:20 | NUR ---
QUIET HOURS. NO ACUTE CHANGES IN CONDITION THIS SHIFT. RESTING IN BED WITH NO DISTRESS NOTED.
[2020-09-17 05:46] VITALS: BP 113/46
[2020-09-17 07:00] VITALS: BP 126/64
[2020-09-17 12:00] VITALS: BP 128/70
--- NOTE | 2020-09-17 12:55 | NUR ---
SITTING UP IN BED FOR LUNCH. POOR APPETITE NOTED. SHE STATES SHE DOES NOT WANT TO EAT. SHE IS GETTING NEPRO SUPPLIMENT AT MEALS. SHE IS CONFUSED TO TIME. CALL TAWANDA REACH
[2020-09-17 18:34] VITALS: BP 129/73
[2020-09-17 19:00] VITALS: BP 108/63
--- NOTE | 2020-09-17 19:42 | NUR ---
RESTING IN BED, NO DISTRESS NOTED, FAMILY IN ROOM, ENC INTAKE
[2020-09-18 00:35] VITALS: BP 133/66
--- NOTE | 2020-09-18 00:59 | NUR ---
SLEEPING, MEDICATED FOR PAIN EARLIER, NO DISTRESS NOTED
[2020-09-18 06:43] VITALS: BP 122/63
--- NOTE | 2020-09-18 07:08 | NUR ---
TEMP THIS AM OF 99.5, CONT TO MONITOR AND PASSED TO DAY SHIFT
--- NOTE | 2020-09-18 08:59 | NUR ---
VERY SLEEPY. WILL WAKE UP AND FOLLOW COMMANDS BUT SLOW TO ANSWER QUESTIONS. DENIES HUNGER. APPETITE IS POOR. SHE IS THIN AND FRAIL. CALL LIGHT IN REACH
[2020-09-18 12:00] VITALS: BP 124/64
[2020-09-18 18:08] VITALS: BP 121/50
--- NOTE | 2020-09-18 20:05 | NUR ---
RETURNED TO BED, C/O ABD PAIN, MEDICATED, TAKES MEDS WITH EASE, CONT TO MONITOR
--- NOTE | 2020-09-18 20:30 | NUR ---
FAMILY CALLED CONCERNED ABOUT PT POOR INTAKE, WANTING PT TO BE OFFERED HS SNACK AND PROVIDED WITH AN IV, ASK TO TALK WITH DR ABOUT HER GETTING BACK ON IV FLUIDS, PROVIDED DR VILLATORO WITH PT PHONE NUMBER AT HIS DESK FOR TOMORROW ROUNDS
[2020-09-18 21:13] VITALS: BP 133/54
[2020-09-19 06:01] LABS: ANION GAP 11.1 mmol/L (8-16); CALCIUM 7.8 mg/dL (8.5-10.1); CARBON DIOXIDE 27.7 mmol/L (21.0-32.0); CREATININE - SERUM 6.6 mg/dL (0.6-1.3); POTASSIUM - SERUM 4.8 mmol/L (3.5-5.1)
[2020-09-19 06:02] LABS: BASOPHILS 0.5 % (0-2); EOSINOPHILS 0.3 % (0-7); HEMATOCRIT 27.2 % (36.0-48.0); HEMOGLOBIN 8.8 g/dL (12-16); MCH 28.2 pg (26.0-34.0); MCHC 32.2 g/dL (31.0-37.0); MCV 87.5 fL (80.0-100.0); MEAN PLATELET VOLUME 9.4 fL (7.4-10.4); MONOCYTES 8.1 % (2-11); NEUTROPHILS 84.1 % (40-80); PLATELET COUNT 380 10x3/uL (130-400); RBC 3.11 10x6/uL (4.00-5.40); RDW 19.8 % (11.5-14.5); WBC 10.8 10x3/uL (4.8-10.8)
[2020-09-19 06:37] VITALS: BP 140/70
--- NOTE | 2020-09-19 07:47 | NUR ---
SITTING UP IN BED FOR BREAKFAST. IS AWAKE AND ALERT AND CONFUSED TO TIME. DENIES CURRENT PAIN. ABD INCISION HAS NO S/S INFECTION. MADISON CLOSING INCISION AND IS OPEN TO AIR. POOR APPETITE STILL NOTED. DENIES NAUSEA. CALL LIGHT IN REACH
[2020-09-19 12:06] VITALS: BP 142/71
--- NOTE | 2020-09-19 16:13 | NUR ---
Nutrition Follow-up: ESRD on HD TTS Diet: Renal ADA + Nepro with meals PO intake: ~35% average x last 5 meals Last BM: 09/16/20 Wt: 87# (09/16/20) Meds noted: SSI, megace, renvela Labs noted: BUN 55(H), Cr 6.6(H), GFR 8(L), Glu 200(H), POC Glu 236(H) Skin: stage II PU to left buttocks Recommend continue current diet and oral nutrition supplements. Recommend continue appetite stimulant as medically feasible. Encourage PO intake at meal times. If PO intake does not improve, recommend MD to consider PEG placement for long-term vs supplemental feeding. RD is available for TF recommendations as needed. RD will follow-up 09/23/20.
[2020-09-19 18:19] VITALS: BP 142/69
--- NOTE | 2020-09-19 19:10 | NUR ---
BEDSIDE REPORT COMPLETE. RECEIVED PT LYING IN BED AWAKE. ALERT AND ORIENTED X3. PT DOES HAVE SOME CONFUSION. RIGHT CHEST HEMOSPLIT INTACT. DRESSING DATED 09/17/20. MIDLINE ABDOMINAL MADISON INTACT OPEN TO AIR. NO DRAINAGE, SWELLING, REDNESS OR WARMTH NOTED. NO DISTRESS NOTED. CALL LIGHT AND WATER WITHIN REACH. MERCEDES ALARM ON. CPOC
[2020-09-19 20:30] VITALS: BP 138/68
[2020-09-20] VITALS: BP 115/55
--- NOTE | 2020-09-20 01:07 | NUR ---
PT LYING IN BED ON RIGHT SIDE EYES CLOSED RESTING. RR EVEN AND UNLABORED. MERCEDES ALARM ON
--- NOTE | 2020-09-20 03:01 | NUR ---
PT LYING IN BED ON LEFT SIDE EYES CLOSED RESTING. RR EVEN AND UNLABORED. MERCEDES ALARM ON
[2020-09-20 06:21] VITALS: BP 132/65
--- NOTE | 2020-09-20 06:27 | NUR ---
ASSISTED PT TO RESTROOM WITH MIN ASSIST. VOID ONLY. FSBS 128. C/O ABDOMINAL PAIN BURNING. VS STABLE. NO OTHER NEEDS VOICED. CALL LIGHT WITHIN REACH. MERCEDES ALARM ON
[2020-09-20 06:43] LABS: % SATURATION 38 % (15-55); IRON 25 ug/dl (35-150); TOTAL IRON BIND CAPACITY 65 ug/dl (260-445)
[2020-09-20 06:44] LABS: UNSAT IRON BIND CAPACITY 40 ug/dl (150-375)
[2020-09-20 07:21] LABS: PHOSPHOROUS 5.8 mg/dL (2.5-4.9)
--- NOTE | 2020-09-20 09:16 | NUR ---
SHE IS SETTING UP IN THE BED. TRYING TO ENCOURAGE HER TO EAT. SHE IS CONFUSED AT TIMES. TODAY IS A DIALYSIS DAY. SHE HAS A MEPILEX TO HER COCCYX. THE CALL LIGHT IS WITHIN REACH AND BED ALARM IS ON.
[2020-09-20 12:35] VITALS: BP 127/56
[2020-09-20 16:43] VITALS: BP 124/57
--- NOTE | 2020-09-20 19:00 | NUR ---
BEDSIDE REPORT COMPLETE. RECEIVED PT LYING IN BED ON RIGHT SIDE AWAKE. ALERT WITH CONFUSION. DENIES ANY NEEDS. STILL NOT WANTING TO EAT, AND JUST WANTING TO GO HOME WITH FAMILY. RIGHT CHEST HEME INTACT DRESSING AND SWAB CAPS INTACT. LEFT FOREARM IV WITHOUT REDDNESS OR SWELLING. DRESSING AND SWAB CAPS INTACT. MEPILEX C/D/I TO COCCYX/BUTTOCKS. NO DISTRESS NOTED. ABD MIDLINE MADISON WITHOUT S/S OF INFECTION NO DRAINAGE NOTED. CALL LIGHT AND WATER WITHIN REACH. MERCEDES ALARM ON. CPOC
[2020-09-20 23:44] VITALS: BP 115/57
--- NOTE | 2020-09-21 05:03 | NUR ---
PT LYING IN BED ON LEFT SIDE EYES CLOSED RESTING. RR EVEN AND UNLABORED. NO ACUTE CHANGES IN CONDITION THIS SHIFT. CALL LIGHT AND WATER WITHIN REACH. MERCEDES ALARM ON
[2020-09-21 05:30] VITALS: BP 110/62
[2020-09-21 07:36] LABS: BASOPHILS 0.6 % (0-2); EOSINOPHILS 0.8 % (0-7); HEMATOCRIT 27.6 % (36.0-48.0); HEMOGLOBIN 8.8 g/dL (12-16); LYMPHOCYTES 9.6 % (15-50); MCH 28.1 pg (26.0-34.0); MCHC 31.9 g/dL (31.0-37.0); MCV 88.2 fL (80.0-100.0); MEAN PLATELET VOLUME 9.4 fL (7.4-10.4); MONOCYTES 9.2 % (2-11); NEUTROPHILS 79.8 % (40-80); RBC 3.13 10x6/uL (4.00-5.40); RDW 19.5 % (11.5-14.5); WBC 8.1 10x3/uL (4.8-10.8)
[2020-09-21 07:51] LABS: PLATELET COUNT 299 10x3/uL (130-400)
[2020-09-21 07:53] LABS: ANION GAP 14.8 mmol/L (8-16); CALCIUM 7.9 mg/dL (8.5-10.1); CARBON DIOXIDE 24.7 mmol/L (21.0-32.0); CREATININE - SERUM 5.2 mg/dL (0.6-1.3); POTASSIUM - SERUM 4.5 mmol/L (3.5-5.1)
[2020-09-21 11:43] VITALS: BP 112/47
--- NOTE | 2020-09-21 13:33 | NUR ---
Nutrition Follow-up: Discussed with RN. Patient diet was changed to Regular from Renal ADA. RN states that diet change was approved by renal. RN states that patient is only requesting to eat potatoe chips and diet Dr. Crisostomo. RD will follow-up 09/23/20.
--- NOTE | 2020-09-21 15:39 | NUR ---
CARE TEAM MEETING: PATIENT IS DOING WELL IN THERAPY BUT WANTS TO GO HOME. SHE IS AMBULATING 150FT. I SPOKE WITH HER AND HE WOULD LIKE TO TAKE HER HOME ON 09/23/20. WILL CONTINUE TO FOLLOW WITH PATIENT AND WILL ASSIST WITH DC NEEDS.
[2020-09-21 18:19] VITALS: BP 103/51
--- NOTE | 2020-09-21 20:02 | NUR ---
RESTING IN BED, NO DISTRESS NOTED, SL IN PLACE, CONFUSED, CONT TO MONITOR SAFETY, PT ASKING TO GO HOME
[2020-09-22 00:02] VITALS: BP 103/47
[2020-09-22 05:37] VITALS: BP 114/40
[2020-09-22] MEDS ORDERED: HYDROCODON-ACE1 EAC7 PO (07:25)
[2020-09-22] MEDS ORDERED: XANAX0.25 MG PO (07:25)
[2020-09-22 12:32] VITALS: BP 140/52
[2020-09-22 18:57] VITALS: BP 150/69
--- NOTE | 2020-09-22 19:04 | NUR ---
BEDSIDE REPORT COMPLETE. RECEIVED PT LYING IN BED AWAKE. ALERT WITH CONFUSION. DENIES ANY NEEDS. C/O STOMACH DISCOMFORT. RIGHT CHEST HEME WITHOUT REDNESS OR SWELLING. DRESSING C/D/I. LEFT FOREARM SL DRESSING C/D/I. NO DISTRESS NOTED. CALL LIGHT AND WATER WITHIN REACH. MERCEDES ALARM ON. CPOC
--- NOTE | 2020-09-22 21:00 | NUR ---
PROVIDED PT WITH CHICKEN NOODLE SOUP WITH SALTINE CRACKERS PER REQUEST
--- NOTE | 2020-09-22 22:02 | NUR ---
FSBS 355 PT ATE 100% CHICKEN NOODLE SOUP WITH CRACKERS.
--- NOTE | 2020-09-23 00:15 | NUR ---
PREPPED ABD MIDLINE INCISION WITH BETADINE, REMOVED 15 MADISON WAS UNABLE TO REMOVE 1 STAPLE FROM UPPER MIDLINE INCISION. REMOVED SINGLE STAPLE FROM UPPER LEFT SIDE OF ABDOMEN. INCISION WELL APPROXIMATED AND HEALING WNL. PT TOLERATED WELL.
[2020-09-23 00:29] VITALS: BP 144/56
--- NOTE | 2020-09-23 02:33 | NUR ---
PT LYING IN BED ON LEFT SIDE EYES CLOSED RESTING. RR EVEN AND UNLABORED. CALL LIGHT WITHIN REACH. MERCEDES ALARM ON
[2020-09-23 06:19] VITALS: BP 119/50
[2020-09-23 07:11] LABS: BASOPHILS 0.6 % (0-2); HEMATOCRIT 26.1 % (36.0-48.0); HEMOGLOBIN 8.5 g/dL (12-16); LYMPHOCYTES 10.8 % (15-50); MCH 28.5 pg (26.0-34.0); MCHC 32.6 g/dL (31.0-37.0); MCV 87.2 fL (80.0-100.0); MEAN PLATELET VOLUME 9.3 fL (7.4-10.4); MONOCYTES 11.7 % (2-11); NEUTROPHILS 75.9 % (40-80); PLATELET COUNT 213 10x3/uL (130-400); RBC 2.99 10x6/uL (4.00-5.40); RDW 19.1 % (11.5-14.5); WBC 6.9 10x3/uL (4.8-10.8)
[2020-09-23 07:41] LABS: CALCIUM 7.8 mg/dL (8.5-10.1); CARBON DIOXIDE 27.5 mmol/L (21.0-32.0); CREATININE - SERUM 5.1 mg/dL (0.6-1.3)
[2020-09-23 07:43] LABS: POTASSIUM - SERUM 3.5 mmol/L (3.5-5.1)
--- NOTE | 2020-09-23 08:20 | NUR ---
SHE IS AWAKE, I SET HER UP IN THE BED FOR BREAKFAST. SHE HAS THE RIGHT HEMOSPLIT, SHE WILL BE DISCHARGED WITH IT. SHE DOES NOT EAT MUCH, I SET UP HER FOOD FOR HER. SHE WILL LET YOU HOLD HER CUP FOR HER IF YOU DON'T ENCOURAGE HER TO HOLD IT. THE CALL LIGHT IS WITHIN REACH AND THE BED ALARM IS ON.
--- NOTE | 2020-09-23 10:14 | NUR ---
PATIENT DISCHARGING TO HER HOME WITH FAMILY TODAY. [facility] WILL PROVIDE THERAPY AT HOME. NO NEW DME NEEDED AT THIS TIME. FAMILY WILL MAKE APPOINTMENT WITH PATIENT PCP TO BE SEEN IN ONE WEEK. DR. ELIZONDO 10/11/[address] MONIK CHASE/KRISTA 10/24/20 @ 2:00. PATIENT WILL CONTINUE WITH SAME HD DAYS AT [facility] ( GAUDENCIO FROM [facility] NOTIFIED) AND WILL SEE DR. MATHIS AT THAT TIME. TOMMY SERVED, IMM SERVED AND EXPLAINED, ONE GIVEN TO PATIENT AND ONE FILED IN CHART. DC INSTRUCTIONS FAXED TO [facility] AND REVIEWED WITH PATIENT AND FAMILY. NO COMPARE DATA REVIEWED PER PATIENT REQUEST.
--- NOTE | 2020-09-23 11:50 | NUR ---
PAPER WORK GONE OVER WITH THE PATIENT AND HUGO. MEDICATIONS CALLED INTO [facility] IN [place], I TALKED TO SHAQUILLE. WRITTEN PRESCRIPTIONS FOR NORCO AND XANAX WITH THE PAPER WORK. SHE HAS THE RIGHT HEMOSPLIT WITH DRESSING INTACT. TAKEN TO THE FRONT DOOR VIA WHEELCHAIR.
--- NOTE | 2020-09-23 11:55 | NUR ---
IV REMOVED FROM THE LEFT ARM BEFORE DISCHARGE.
--- NOTE | 2020-09-25 13:16 | RHP ---
PATIENT: BRIDGETT CUTLER MEDICAL RECORD: [id number] ACCOUNT: [id number] LOCATION:[id number] : 43 ADMISSION DATE: 09/15/20 REHABILITATION HISTORY AND PHYSICAL EXAMINATION POST ADMISSION PHYSICIAN EXAMINATION POST ADMISSION PHYSICAL EXAMINATION AND HISTORY AND PHYSICAL ADMITTING DIAGNOSIS: Uremic myopathy. HISTORY OF PRESENT ILLNESS: The patient is a 75-year-old female patient who came via transfer from outside facility for evaluation of management of multiple medical problems that included end-stage renal disease and dialysis. 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 She apparently initially presented to the [facility] with belly pain. The patient was seen and evaluated. She was noted to have worsening of her right lower quadrant pain. They obtained repeat imaging with contrast and consulted nephrology and general surgery. Obtained a CT echo and admitted to the ICU for evaluation, monitoring and treatment. She had bilateral pleural effusions, pulmonary edema, occluded superior mesenteric artery sepsis, and end-stage renal disease. She has been n.p.o. She has been on vancomycin, on appropriate medications for this. The patient went to the OR. Postop when she returned to the ICU, she was on the ventilator. Pulmonary was consulted to manage her on the vent. The patient has a history of COPD. She was weaned from the vent on 09/07/2020. She kept on the NG tube down. Cardiology was consulted secondary to some elevations of her cardiac enzymes. They diagnosed her with a non-ST segment elevation SD consistent with a type 2 SD secondary to ischemic demand, ischemic cardiomyopathy with an EF of 10% to 15% consistent with pulmonary congestion and recommended ultrafiltration with hemodialysis for volume removal. The patient has been on appropriate medications since that point. She has had some intermittent nausea, but appears to be getting better. She has completed her antibiotic therapy. She still requiring monitoring for her blood pressure. Medications are being changed routinely by nephrology. She is having continuous dialysis. Her labs are managed closely. She is here for pain control. Adjustments of her oral medications prior to this hospitalization. She lives at home with her spouse and her granddaughter, who lives with them. Either her or spouse drive. She was independent at home and walked with no device. Her , David said that she would just get weak and drop at times. He stated that her granddaughter did have to help with getting her up and getting around. She has definitely had some problems with her ADLs and functional ability. She is now mid assist to mod assist with her functional mobility and ADLs with use of rolling walker with poor balance and proximal muscle weakness. Will definitely require intensive therapy to get back to her prior level of functioning. COMORBIDITIES: In this patient include acute mental status changes, anemia, arthritis, asthma, cardiomyopathy, congestive heart failure, chronic pain, confusion, COPD, debility, decreased mobility, decreasing physical functioning, difficulty walking, diabetes, emphysema, end-stage renal disease, history of GI bleed, hyperkalemia, hypoalbuminemia, hypocalcemia, hyponatremia, hypoxia, incontinence, non-ST segment elevation SD, pulmonary edema, sepsis, urinary incontinence, and hypotension. PAST MEDICAL HISTORY: Significant for hypertension, dyslipidemia, coronary HISTORY AND PHYSICAL [id number] BRIDGETT CUTLER artery disease, coronary artery bypass grafting, peripheral arterial disease, COPD, history of kidney cancer, end-stage renal disease, dialysis, asthma, emphysema, osteoarthritis, depression, anxiety, chronic pain, diabetes, CHF. PAST SURGICAL HISTORY: Includes a nephrectomy, CABG, and AFRO. ALLERGIES: No known drug allergies. CURRENT MEDICATIONS: Include Losartan 100 mg daily, Megace 40 mg b.i.d., atorvastatin 10 mg at bedtime, sevelamer 0.8 mg t.i.d. with meals, carvedilol 6.25 mg b.i.d. with meals, and Protonix 40 mg b.i.d. HABITS: No alcohol or tobacco use. FAMILY HISTORY: Noncontributory. SOCIAL HISTORY: The patient hopes to return back home and get back to her prior level of functioning. REVIEW OF SYSTEMS: GENERAL: Does complain of weakness and fatigue. HEENT: Denies cold, cough, or congestion. CARDIOVASCULAR: Denies any chest pain. PHYSICAL EXAMINATION: VITAL SIGNS: Stable, afebrile. GENERAL: A very thin, cachectic elderly female, in no distress upon exam. HEENT: Normocephalic and atraumatic. Mucosa moist. NECK: Supple with no lymphadenopathy. LUNGS: Clear in upper [place]. No wheezing or rales. HEART: Regular rate and rhythm. Does have a holosystolic murmur. ABDOMEN: Soft, benign, nondistended. Positive bowel sounds times 4. EXTREMITIES: No clubbing, cyanosis, or edema. NEUROLOGIC: She does have diffuse weakness and also seems easily confused. LABORATORY DATA: Her white count is 8.2, H&H 8.8 and 28.1, and platelet count 318. Her sodium is 134, potassium 5.4, BUN and creatinine of 52 and 4.8, blood sugar is noted to be 130. Her random vancomycin level has been followed closely, although she has been recently discharged from IV antibiotics. ASSESSMENT: This is a 75-year-old female patient admitted to rehab with a working diagnosis of uremic myopathy. The patient has potential to make improvement. We instituted the following multidisciplinary therapies including, not limited to physical, occupational, respiratory, speech, nutritional services, prosthetics and orthotics. Given her complex medical condition and risks for more complications, rehabilitation services cannot be provided at a low level of care such a snf facility. PLAN: 1. Admit to [facility] for inpatient therapy to include the following disciplines; A. Physical therapy to improve gait, all transfer skills and bed mobility to a modified independent level. B. Occupational therapy to improve activities of daily living. C. Case management to help with discharge planning and placement options. HISTORY AND PHYSICAL [id number] BRIDGETT CUTLER Nutrition to assist with nutritional needs. E. Rehabilitation nursing to assist in monitoring the patient's underlying medical conditions and to assist with any type of bowel or bladder management. 2. The patient's current medication and medical care will be continued. 3. Placed on standard fall precautions. 4. We will allow her electrolytes to be managed by nephrology. 5. I will see her again in the a.m. TRANSINT:[id number] Voice Confirmation ID: [id number] DOCUMENT ID: [id number] 09/23/2020 Edited for ramone DELONG. BALJEET notes whether there has been none or any medical/functional change since admission: - No change since preadmission screen. BALJEET attests patient continues to be appropriate for IRF: - Continues to be appropriate. ERIC VILLATORO MD at 1316 CC: [id number] DICTATION DATE: 09/15/20 1645 FABRICATION WELDER: 09/15/20 [id number] DIS IN 09/23/20 [id number] [place] [id number]
== END 2020-09-23 11:54 | disposition home health service (06) | DRG 91 ==
LOC: D.REHAB 13:23
PROVIDERS: Internal Medicine; ADMIT Emergency Medicine; ATTEND Emergency Medicine
DX: G72.89 Other specified myopathies (principal); N18.6 End stage renal disease; A41.9 Sepsis, unspecified organism; I21.4 Non-ST elevation (NSTEMI) myocardial infarction; I13.2 Hypertensive heart and chronic kidney disease with heart failure and with stage 5 chronic kidney disease, or end stage renal disease; I42.9 Cardiomyopathy, unspecified; E87.1 Hypo-osmolality and hyponatremia; D64.9 Anemia, unspecified; E11.22 Type 2 diabetes mellitus with diabetic chronic kidney disease; I50.9 Heart failure, unspecified; Z99.2 Dependence on renal dialysis; J45.909 Unspecified asthma, uncomplicated; R26.2 Difficulty in walking, not elsewhere classified; J43.9 Emphysema, unspecified; E87.5 Hyperkalemia; E83.51 Hypocalcemia; R09.02 Hypoxemia; R32 Unspecified urinary incontinence; R53.81 Other malaise; G89.29 Other chronic pain; I25.10 Atherosclerotic heart disease of native coronary artery without angina pectoris; M19.90 Unspecified osteoarthritis, unspecified site; D63.1 Anemia in chronic kidney disease; I25.5 Ischemic cardiomyopathy